=== PATIENT | male | born 1985 | race American Indian/Alaskan Native ===

== ENCOUNTER 2017-01-16 02:22 | Inpatient (IN) | payer SELFPAY ==
[2017-01-16 02:46] LABS: Basophils % (Auto) 0.9 % (0.0-1.8); Eosinophils % (Auto) 3.6 % (0.0-4.3); Hemoglobin 15.2 gm/dl (11.8-15.2); Mean Corpuscular HGB Conc 35 % (32-34); Mean Corpuscular Hemoglobin 32 pg (28-32); Mean Corpuscular Volume 93 fl (84-94); Platelet Count 235 K/mm3 (140-440); Red Blood Count 4.75 M/mm3 (3.65-5.03); Red Cell Distribution Width 14.1 % (13.2-15.2); White Blood Count 13.9 K/mm3 (4.5-11.0)
[2017-01-16 03:05] LABS: Anion Gap 18 mmol/L; BUN/Creatinine Ratio 13; Blood Urea Nitrogen 12 mg/dL (9-20); Calcium 9.4 mg/dL (8.4-10.2); Carbon Dioxide 25 mmol/L (22-30); Chloride 97.6 mmol/L (98-107); Glucose 93 mg/dL (75-100); Sodium 137 mmol/L (137-145)
[2017-01-16] MEDS ORDERED: NACL 0.9% 1000 ML 1,000 ML IV ONE (06:42)
[2017-01-16] MEDS ORDERED: ATIVAN IV PRN (06:55)
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
[2017-01-16 07:48] LABS: Urine Drugs of Abuse Note Disclamer
[2017-01-16 08:05] LABS: Bilirubin,Urine NEG (Negative); Blood,Urine NEG (Negative); Ketones,Urine NEG (Negative); Leukocyte Esterase,Urine NEG (Negative); Mucus,Urine FEW /HPF; Nitrite,Urine NEG (Negative); Protein,Urine <15 mg/dL mg/dL (Negative); Urobilinogen,Urine < 2.0 mg/dL (<2.0)
[2017-01-16] MEDS ORDERED: TYLENOL PO PRN (09:47)
[2017-01-16] MEDS ORDERED: ZOFRAN IV PRN (09:47)
--- NOTE | 2017-01-16 09:57 | History and Physical Report ---
History of Present Illness Date of examination: 01/16/17 Date of admission: 01/16/2017 History of present illness: patient is a 31 years old male with no past medical history, who presenters to the Emergency Department for free physical checkup and hallucination. Patient initiated confused and hallucinated, therefore unable to provide detailed history. Patient was able to tell me that he came in for free physical checkup. Patient drove himself to the hospital. Patient denies auditory or visual hallucinations. Patient denies pain of any type, fever nausea or vomiting. Patient denies having any pain at present time. Past History Past Medical History: No medical history Past Surgical History: Other (unable to obtain due to patient's mental status) Social history: other (unable to obtain due to patient's mental status) Family history: other (unable to obtain due to patient's mental status) Medications and Allergies Allergies Allergy/AdvReac Type Severity Reaction Status Date / Time No Known Allergies Allergy Unverified 01/16/17 02:34 Active Meds: Active Medications Acetaminophen (Tylenol) 650 mg PO Q4H PRN PRN Reason: Pain MILD(1-3)/Fever >100.5/LIRA Bisacodyl (Dulcolax) 10 mg [place] QDAY PRN PRN Reason: Constipation unrelieved by MOM Enoxaparin Sodium (Lovenox) 40 mg SUB-Q QDAY [place] Sodium Chloride (Nacl 0.9% 1000 Ml) 1,000 mls @ 125 mls/hr IV DIRECT [place] Lorazepam (Ativan) 1 mg IV ONCE PRN PRN Reason: Agitation Last Admin: 01/16/17 09:15 Dose: 1 mg Ondansetron HCl (Zofran) 4 mg IV Q8H PRN PRN Reason: N/V unrelieved by Reglan Review of Systems ROS unobtainable: due to mental status (unable to obtain due to patient's mental status) Exam - Constitutional Vitals: Temp Pulse Resp BP Pulse Ox 98.4 F 92 H 18 151/80 97 01/16/17 02:29 01/16/17 02:29 01/16/17 07:22 01/16/17 02:29 01/16/17 02:29 General appearance: Present: no acute distress - EENT Eyes: Present: PERRL ENT: hearing intact - Neck Neck: Present: supple - Respiratory Respiratory effort: normal Respiratory: bilateral: CTA - Cardiovascular Rhythm: regular Heart Sounds: Present: S1 & S2 - Abdominal General gastrointestinal: Present: soft, non-tender Male genitourinary: Present: deferred - Rectal Rectal Exam: deferred - Integumentary Integumentary: Present: clear, warm, dry - Musculoskeletal Musculoskeletal: strength equal bilaterally - Psychiatric Psychiatric: appropriate mood/affect - Neurologic Neurologic: moves all extremities - Allied Health Allied health notes reviewed: nursing Results - Labs CBC & Chem 7: 01/16/17 02:39 01/16/17 02:39 Labs: Laboratory Last Values WBC 13.9 K/mm3 (4.5-11.0) H 01/16/17 02:39 RBC 4.75 M/mm3 (3.65-5.03) 01/16/17 02:39 Hgb 15.2 gm/dl (11.8-15.2) 01/16/17 02:39 Hct 44.0 % (35.5-45.6) 01/16/17 02:39 MCV 93 fl (84-94) 01/16/17 02:39 MCH 32 pg (28-32) 01/16/17 02:39 MCHC 35 % (32-34) H 01/16/17 02:39 RDW 14.1 % (13.2-15.2) 01/16/17 02:39 Plt Count 235 K/mm3 (140-440) 01/16/17 02:39 Lymph % (Auto) 30.2 % (13.4-35.0) 01/16/17 02:39 [place] % (Auto) 9.5 % (0.0-7.3) H 01/16/17 02:39 Eos % (Auto) 3.6 % (0.0-4.3) 01/16/17 02:39 Baso % (Auto) 0.9 % (0.0-1.8) 01/16/17 02:39 Lymph # 4.2 K/mm3 (1.2-5.4) 01/16/17 02:39 [place] # 1.3 K/mm3 (0.0-0.8) H 01/16/17 02:39 Eos # 0.5 K/mm3 (0.0-0.4) H 01/16/17 02:39 Baso # 0.1 K/mm3 (0.0-0.1) 01/16/17 02:39 Seg Neutrophils % 55.8 % (40.0-70.0) 01/16/17 02:39 Seg Neutrophils # 7.8 K/mm3 (1.8-7.7) H 01/16/17 02:39 Sodium 137 mmol/L (137-145) 01/16/17 02:39 Potassium 4.0 mmol/L (3.6-5.0) 01/16/17 02:39 Chloride 97.6 mmol/L (98-107) L 01/16/17 02:39 Carbon Dioxide 25 mmol/L (22-30) 01/16/17 02:39 Anion Gap 18 mmol/L 01/16/17 02:39 BUN 12 mg/dL (9-20) 01/16/17 02:39 Creatinine 0.9 mg/dL (0.8-1.5) 01/16/17 02:39 Estimated GFR > 60 ml/min 01/16/17 02:39 BUN/Creatinine Ratio 13 % 01/16/17 02:39 Glucose 93 mg/dL (75-100) 01/16/17 02:39 Calcium 9.4 mg/dL (8.4-10.2) 01/16/17 02:39 Total Creatine Kinase 1995 units/L (55-170) H 01/16/17 02:39 Urine Color Yellow (Yellow) 01/16/17 Unknown Urine Turbidity Clear (Clear) 01/16/17 Unknown Urine pH 5.0 (5.0-7.0) 01/16/17 Unknown Ur Specific [place] 1.024 (1.003-1.030) 01/16/17 Unknown Urine Protein <15 mg/dl mg/dL (Negative) 01/16/17 Unknown Urine Glucose (UA) Neg mg/dL (Negative) 01/16/17 Unknown Urine Ketones Neg mg/dL (Negative) 01/16/17 Unknown Urine Blood Neg (Negative) 01/16/17 Unknown Urine Nitrite Neg (Negative) 01/16/17 Unknown Urine Bilirubin Neg (Negative) 01/16/17 Unknown Urine Urobilinogen < 2.0 mg/dL (<2.0) 01/16/17 Unknown Ur Leukocyte Esterase Neg (Negative) 01/16/17 Unknown Urine WBC (Auto) 1.0 /HPF (0.0-6.0) 01/16/17 Unknown Urine RBC (Auto) 4.0 /HPF (0.0-6.0) 01/16/17 Unknown Urine Mucus Few /HPF 01/16/17 Unknown Salicylates < 0.3 mg/dL (2.8-20.0) L 01/16/17 02:39 Acetaminophen < 15.0 ug/mL (10.0-30.0) 01/16/17 02:39 Plasma/Serum Alcohol < 0.01 gm% (0-0.07) 01/16/17 02:39 - Imaging and Cardiology CT Scan - head: image reviewed ( no acute intracranial process) Assessment and Plan Assessment and plan: Patient is a 31 years old male with no past medical history, who presenters to the Emergency Department for free physical checkup and hallucination. Acute encephalopathy Patient hallucination, Patient don't have psychiatric HX before, might be a new- onest Closely monitor Rhabdomyolysis Admit to [facility] Started on IV fluid hydration Closely monitor total creatinine kinase Supportive care Leukocytosis Most likely reactive, no source of infection found Repeat CBC in the AM Closely monitor CBC Hallucination Questionable new onset psychotic disorder Mental health consulted DVT prophylaxis Lovenox Advance Directives: Yes VTE prophylaxis?: Chemical Contraindication Mechanical VTE Prophylaxis: Treatment Not Indicated Plan of care discussed with patient/family: Yes
[2017-01-16] MEDS ORDERED: DULCOLAX PR PRN (10:00)
[2017-01-16] MEDS ORDERED: NACL 0.9% 1000 ML 1,000 ML IV SCH (10:00)
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
[2017-01-16] MEDS: LOVENOX SUB-Q SCH (12:30)
--- NOTE | 2017-01-16 16:04 | Consultation ---
History of Present Illness - Reason for Consult Reason for consult: delusional Medications and Allergies Allergies Allergy/AdvReac Type Severity Reaction Status Date / Time No Known Allergies Allergy Unverified 01/16/17 02:34 Active Meds: Active Medications Acetaminophen (Tylenol) 650 mg PO Q4H PRN PRN Reason: Pain MILD(1-3)/Fever >100.5/LIRA Bisacodyl (Dulcolax) 10 mg [place] QDAY PRN PRN Reason: Constipation unrelieved by MOM Enoxaparin Sodium (Lovenox) 40 mg SUB-Q QDAY [place] Last Admin: 01/16/17 12:30 Dose: Not Given Sodium Chloride (Nacl 0.9% 1000 Ml) 1,000 mls @ 125 mls/hr IV DIRECT [place] Lorazepam (Ativan) 1 mg IV ONCE PRN PRN Reason: Agitation Last Admin: 01/16/17 09:15 Dose: 1 mg Ondansetron HCl (Zofran) 4 mg IV Q8H PRN PRN Reason: N/V unrelieved by Reglan Mental Status Exam - Vital signs Last Vital Signs Temp 98.9 F 01/16/17 15:56 Pulse 76 01/16/17 15:56 Resp 20 01/16/17 15:56 BP 135/68 01/16/17 15:56 Pulse Ox 97 01/16/17 15:56 Results Result Diagrams: 01/16/17 02:39 01/16/17 02:39 Abnormal lab results 01/16/17 01/16/17 01/16/17 Range/Units 02:39 02:39 02:39 WBC 13.9 H (4.5-11.0) K/mm3 MCHC 35 H (32-34) % [place] % (Auto) 9.5 H (0.0-7.3) % [place] # 1.3 H (0.0-0.8) K/mm3 Eos # 0.5 H (0.0-0.4) K/mm3 Seg Neutrophils # 7.8 H (1.8-7.7) K/mm3 Chloride 97.6 L (98-107) mmol/L Total Creatine Kinase 1995 H (55-170) units/L Salicylates (2.8-20.0) mg/dL 01/16/17 Range/Units 02:39 WBC (4.5-11.0) K/mm3 MCHC (32-34) % [place] % (Auto) (0.0-7.3) % [place] # (0.0-0.8) K/mm3 Eos # (0.0-0.4) K/mm3 Seg Neutrophils # (1.8-7.7) K/mm3 Chloride (98-107) mmol/L Total Creatine Kinase (55-170) units/L Salicylates < 0.3 L (2.8-20.0) mg/dL All other labs normal. Assessment and Plan Assessment and plan: CHIEF COMPLAINT IN PATIENTS WORDS: HISTORY OF PRESENT ILLNESS: This is a 31-year-old male with no formal report past psychiatric history per the patient who now presents to the ER reportedly to obtain free medical checkup. On examination by the ER physician, patient appeared to be disorganized and paranoid. Later on he was found to have elevated creatinine kinase and admitted to the [facility] floor for presumptive treatment of rhabdomyolysis with IV hydration. On my examination, patient was uncooperative , guarded and fairly hostile. His father was in the exam room with him and the patient demanded that I do not speak with the father and revoked any consent for me to speak with the father. Additionally, patient noted that this was his father only for the past few years; however, the patient's father noted that this is his biological son has been his father forever. Patient had been recently living with his mom in [place] and notes he was employed while there for the past several years. Patient recently moved to [place] in September 2016 and has been residing with his father. At the current time, it appears that the father and the patient are having an ongoing dispute about the afterlife. The patient notes being concerned about not being able to meet his father upon their mutual . Patient believes that the father's atheist and therefore will not meet him in heaven. Patient's current presentation appears to be fairly hyper church. His thought process appears circumstantial at best and often tangential. He denies auditory or visual hallucinations. He denies being able to speak directly with God; however, appears to be endorsing church experiences that are out of the norm of what is culturally expected from a person of the Islamic josé miguel. CURRENT MEDICATIONS: None ALLERGIES: NKDA PAST PSYCHIATRIC HISTORY: Inpatient: denies Outpatient: denies Prior Suicide Attempts: denies Prior Self-Injurious Behaviors: denies PAST PSYCHIATRIC MEDICATION TRIALS: denies MEDICAL HISTORY: Denies MENTAL STATUS EXAM: General Appearance: Dressed in hospital gown, no acute distress Sensorium/Consciousness: alert and responding to external stimuli Eye Contact:fair Attitude / Behavior: uncooperative, hostile Psychomotor & Musculoskeletal Activity: agitated Mood: great Affect: labile Speech / Language: hyperverbal Thought Processes: mostly circumstantial, often tangential, some neologisms noted Thought Content: hyperreligious Perception: no AVH Orientation: person, place, time, situation Judgment What would you do if you smelled smoke in a crowded movie theater?: impulsive Insight: poor Intelligence Vocabulary, general fund of knowledge, educational level: Average Capacity of ADLs: Independent STRENGTHS: PSYCHOSOCIAL AND ENVIRONMENTAL STRESSORS: ASSESSMENT: Bipolar disorder, most recent episode manic with psychotic features PLAN OF CARE: Load with Depakote Er 2000 mg po now one time Obtain LFTs, amylase/lipase at baseline Repeat LFTs, Amylase/Lipase after 5 days of treatment with depakote Start standing dose of depakote er 500 mg po q12h after the initial loading dose
[2017-01-16 17:18] LABS: Alanine Aminotransferase 19 units/L (7-56); Albumin 4.1 g/dL (3.9-5); Albumin/Globulin Ratio 1.3 %; Alkaline Phosphatase 123 units/L (35-129); Total Protein 7.3 g/dL (6.3-8.2)
[2017-01-16 17:28] LABS: Bilirubin,Direct < 0.2 mg/dL (0-0.2); Bilirubin,Indirect 0.1 mg/dL
[2017-01-16 17:50] LABS: Amylase 102 units/L (27-131); Lipase 16 units/L (13-60)
[2017-01-16] MEDS: HABITROL TD SCH (19:36)
[2017-01-17 06:39] LABS: Basophils % (Auto) 0.5 % (0.0-1.8); Eosinophils % (Auto) 5.1 % (0.0-4.3); Hematocrit 41.8 % (35.5-45.6); Hemoglobin 14.3 gm/dl (11.8-15.2); Mean Corpuscular HGB Conc 34 % (32-34); Mean Corpuscular Hemoglobin 32 pg (28-32); Mean Corpuscular Volume 93 fl (84-94); Platelet Count 211 K/mm3 (140-440); Red Cell Distribution Width 14.1 % (13.2-15.2); White Blood Count 8.3 K/mm3 (4.5-11.0)
[2017-01-17 06:58] LABS: Anion Gap 18 mmol/L; BUN/Creatinine Ratio 16; Blood Urea Nitrogen 11 mg/dL (9-20); Calcium 8.7 mg/dL (8.4-10.2); Carbon Dioxide 24 mmol/L (22-30); Chloride 101.5 mmol/L (98-107); Glucose 87 mg/dL (75-100); Potassium 4.7 mmol/L (3.6-5.0); Sodium 139 mmol/L (137-145)
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
[2017-01-17] MEDS: LOVENOX SUB-Q SCH (10:26)
[2017-01-17] MEDS: HABITROL TD SCH (10:27)
[2017-01-17] MEDS ORDERED: NACL 0.9% 1000 ML 1,000 ML IV ONE (11:16)
[2017-01-17] MEDS ORDERED: NORCO 5/325 PO PRN (11:18)
--- NOTE | 2017-01-17 14:16 | Progress Note ---
Assessment and Plan Assessment and plan: Bipolar disorder with psychosis Rhabdomyolysis Right groin pain -CT abdomen and pelvis pending - Pain control - IV fluids, CK is trending down - Mental health managing the bipolar disorder - patient is on 1013 DVT prophylaxis - Lovenox Disposition - Continue inpatient care History Interval history: Patient was seen and evaluated this morning, he is calm and cooperative. He is complaining of right groin pain radiating to the testis. Hospitalist Physical - Physical exam Narrative exam: Not in cardiopulmonary distress. The patient is obese. Vital signs as documented. Head exam is unremarkable. No scleral icterus . Neck is without jugular venous distension, thyromegaly, or carotid bruits. Lungs are clear to auscultation. Cardiac exam reveals regular rate and Rhythm. First and second heart sounds normal. No murmurs, rubs or gallops. Abdominal exam reveals normal bowel sounds, no masses, no organomegaly and no aortic enlargement. Extremities are nonedematous and both femoral and pedal pulses are normal. OCCUPATIONAL THERAPIST REHAB MANAGER: Alert and oriented 3. No focal weakness. - Constitutional Vitals: Temp Pulse Resp BP Pulse Ox 98.0 F 78 18 119/72 99 01/17/17 08:08 01/17/17 08:08 01/17/17 08:08 01/17/17 08:08 01/17/17 08:08 General appearance: Present: no acute distress Results - Labs CBC & Chem 7: 01/17/17 06:19 01/17/17 06:19 Labs: Laboratory Last Values WBC 8.3 K/mm3 (4.5-11.0) 01/17/17 06:19 RBC 4.50 M/mm3 (3.65-5.03) 01/17/17 06:19 Hgb 14.3 gm/dl (11.8-15.2) 01/17/17 06:19 Hct 41.8 % (35.5-45.6) 01/17/17 06:19 MCV 93 fl (84-94) 01/17/17 06:19 MCH 32 pg (28-32) 01/17/17 06:19 MCHC 34 % (32-34) 01/17/17 06:19 RDW 14.1 % (13.2-15.2) 01/17/17 06:19 Plt Count 211 K/mm3 (140-440) 01/17/17 06:19 Lymph % (Auto) 31.2 % (13.4-35.0) 01/17/17 06:19 [place] % (Auto) 10.4 % (0.0-7.3) H 01/17/17 06:19 Eos % (Auto) 5.1 % (0.0-4.3) H 01/17/17 06:19 Baso % (Auto) 0.5 % (0.0-1.8) 01/17/17 06:19 Lymph # 2.6 K/mm3 (1.2-5.4) 01/17/17 06:19 [place] # 0.9 K/mm3 (0.0-0.8) H 01/17/17 06:19 Eos # 0.4 K/mm3 (0.0-0.4) 01/17/17 06:19 Baso # 0.0 K/mm3 (0.0-0.1) 01/17/17 06:19 Seg Neutrophils % 52.8 % (40.0-70.0) 01/17/17 06:19 Seg Neutrophils # 4.4 K/mm3 (1.8-7.7) 01/17/17 06:19 Sodium 139 mmol/L (137-145) 01/17/17 06:19 Potassium 4.7 mmol/L (3.6-5.0) 01/17/17 06:19 Chloride 101.5 mmol/L (98-107) 01/17/17 06:19 Carbon Dioxide 24 mmol/L (22-30) 01/17/17 06:19 Anion Gap 18 mmol/L 01/17/17 06:19 BUN 11 mg/dL (9-20) 01/17/17 06:19 Creatinine 0.7 mg/dL (0.8-1.5) L 01/17/17 06:19 Estimated GFR > 60 ml/min 01/17/17 06:19 BUN/Creatinine Ratio 16 % 01/17/17 06:19 Glucose 87 mg/dL (75-100) 01/17/17 06:19 Calcium 8.7 mg/dL (8.4-10.2) 01/17/17 06:19 Total Bilirubin 0.30 mg/dL (0.1-1.2) 01/16/17 16:43 Direct Bilirubin < 0.2 mg/dL (0-0.2) 01/16/17 16:43 Indirect Bilirubin 0.1 mg/dL 01/16/17 16:43 AST 30 units/L (5-40) 01/16/17 16:43 ALT 19 units/L (7-56) 01/16/17 16:43 Alkaline Phosphatase 123 units/L (35-129) 01/16/17 16:43 Total Creatine Kinase 1631 units/L (55-170) H 01/17/17 06:19 Total Protein 7.3 g/dL (6.3-8.2) 01/16/17 16:43 Albumin 4.1 g/dL (3.9-5) 01/16/17 16:43 Albumin/Globulin Ratio 1.3 % 01/16/17 16:43 Amylase 102 units/L (27-131) 01/16/17 16:43 Lipase 16 units/L (13-60) 01/16/17 16:43 Urine Color Yellow (Yellow) 01/16/17 Unknown Urine Turbidity Clear (Clear) 01/16/17 Unknown Urine pH 5.0 (5.0-7.0) 01/16/17 Unknown Ur Specific [place] 1.024 (1.003-1.030) 01/16/17 Unknown Urine Protein <15 mg/dl mg/dL (Negative) 01/16/17 Unknown Urine Glucose (UA) Neg mg/dL (Negative) 01/16/17 Unknown Urine Ketones Neg mg/dL (Negative) 01/16/17 Unknown Urine Blood Neg (Negative) 01/16/17 Unknown Urine Nitrite Neg (Negative) 01/16/17 Unknown Urine Bilirubin Neg (Negative) 01/16/17 Unknown Urine Urobilinogen < 2.0 mg/dL (<2.0) 01/16/17 Unknown Ur Leukocyte Esterase Neg (Negative) 01/16/17 Unknown Urine WBC (Auto) 1.0 /HPF (0.0-6.0) 01/16/17 Unknown Urine RBC (Auto) 4.0 /HPF (0.0-6.0) 01/16/17 Unknown Urine Mucus Few /HPF 01/16/17 Unknown Salicylates < 0.3 mg/dL (2.8-20.0) L 01/16/17 02:39 Urine Opiates Screen Presumptive negative 01/16/17 Unknown Urine Methadone Screen Presumptive negative 01/16/17 Unknown Acetaminophen < 15.0 ug/mL (10.0-30.0) 01/16/17 02:39 Ur Barbiturates Screen Presumptive negative 01/16/17 Unknown Ur Phencyclidine Scrn Presumptive negative 01/16/17 Unknown Ur Amphetamines Screen Presumptive negative 01/16/17 Unknown U Benzodiazepines Scrn Presumptive negative 01/16/17 Unknown Urine Cocaine Screen Presumptive negative 01/16/17 Unknown U Marijuana (THC) Screen Presumptive negative 01/16/17 Unknown Drugs of Abuse Note Disclamer 01/16/17 Unknown Plasma/Serum Alcohol < 0.01 gm% (0-0.07) 01/16/17 02:39
--- NOTE | 2017-01-17 14:39 | Cat Scan Report ---
CT ABDOMEN PELVIS WITHOUT CONTRAST: HISTORY: Right groin pain, radiating to the testicle. COMPARISON: none. TECHNIQUE: Helical CT in 1.25mm intervals without IV contrast. Sagittal and coronal reconstructions. FINDINGS: Lung bases: normal. Liver: normal. Biliary system: normal. Pancreas: normal. Spleen: normal. Kidneys/ureters/bladder: normal. Adrenal glands: normal. Aorta: normal. Intestines: normal. Appendix: Not identified, correlate with history. Pelvic viscera: normal. Musculoskeletal: normal. IMPRESSION: Unremarkable CT scan of the abdomen and pelvis without contrast.
[2017-01-17] MEDS: NACL 0.9% 1000 ML 2,000 ML IV SCH (17:15)
[2017-01-18] MEDS: NACL 0.9% 1000 ML 2,000 ML IV SCH (01:23)
--- NOTE | 2017-01-18 13:00 | Progress Note ---
Subjective - Reason for Consult Consult date: 01/18/17 Reason for consult: Psychiatry Follow-up - Chief Complaint Chief complaint: "Thank you" This is a 31-year-old male with no formal report past psychiatric history per the patient who now presents to the ER reportedly to obtain free medical checkup. Today patient is calm and cooperative during the assessment. He stated that he missed some "casting call" in the area. He stated that he strive to be an actor in the future. Per collateral information from his father Mr. Jeffrey Hernandez, he stated that his son does want to be actor. He stated prior to his son admission, he was hyper verbal, irritable, and not sleeping. Mr. Hernandez feel that his son would benefit from outpatient psy services. He stated that his son can return home once discharged. The patient denies SI/HI's and AVH's. He denies any side effects of his medication. Mental Status Exam - Vital signs Last Vital Signs Temp 98.1 F 01/18/17 08:49 Pulse 100 H 01/17/17 22:01 Resp 18 01/18/17 08:49 BP 146/88 01/18/17 08:49 Pulse Ox 97 01/17/17 22:01 - Exam Narrative exam: MSE: Appearance: calm, cooperative Behavior: regular eye contact Speech: regular rate and tone Mood: "better" Affect: congruent to mood Thought Process: circumstantial Thought Content: denies SI/HI's and AVH's Motor Activity: lying in bed Cognition: A/O x3 Insight: fair Judgment: fair Assessment and Plan Impression: Bipolar DO. Today patient is calm and cooperative during the assessment. Recommendation/Plan: Evaluate 1013 in 24 hours to determine proper dispo. Continue Depakote 500 mg PO BID for mood. Patient can follow-up at [facility] for outpatient psy services. Discussed with patient to follow up at [facility] on 22 Jan 2017 to check his VA levels. Discussed possible side effects of VA with patient.
[2017-01-18] MEDS: LOVENOX SUB-Q SCH (13:03)
[2017-01-18] MEDS: HABITROL TD SCH (13:04)
--- NOTE | 2017-01-18 13:42 | Progress Note ---
Assessment and Plan Assessment and plan: Bipolar disorder with psychosis Rhabdomyolysis Right groin pain -CT abdomen and pelvis is normal, pain resolved - Pain control - CK is trending down, encourage PO intake - Mental health managing the bipolar disorder - patient is on 1013 DVT prophylaxis - Lovenox Disposition - Patient is stable from the medical stand point. History Interval history: Patient was seen and evaluated this morning, he is calm and cooperative. No new complaints. Hospitalist Physical - Physical exam Narrative exam: Not in cardiopulmonary distress. The patient is obese. Vital signs as documented. Head exam is unremarkable. No scleral icterus . Neck is without jugular venous distension, thyromegaly, or carotid bruits. Lungs are clear to auscultation. Cardiac exam reveals regular rate and Rhythm. First and second heart sounds normal. No murmurs, rubs or gallops. Abdominal exam reveals normal bowel sounds, no masses, no organomegaly and no aortic enlargement. Extremities are nonedematous and both femoral and pedal pulses are normal. [employer]: Alert and oriented 3. No focal weakness. - Constitutional Vitals: Temp Pulse Resp BP Pulse Ox 98.1 F 100 H 18 146/88 97 01/18/17 08:49 01/17/17 22:01 01/18/17 08:49 01/18/17 08:49 01/17/17 22:01 General appearance: Present: no acute distress Results - Labs CBC & Chem 7: 01/17/17 06:19 01/17/17 06:19 Labs: Laboratory Last Values WBC 8.3 K/mm3 (4.5-11.0) 01/17/17 06:19 RBC 4.50 M/mm3 (3.65-5.03) 01/17/17 06:19 Hgb 14.3 gm/dl (11.8-15.2) 01/17/17 06:19 Hct 41.8 % (35.5-45.6) 01/17/17 06:19 MCV 93 fl (84-94) 01/17/17 06:19 MCH 32 pg (28-32) 01/17/17 06:19 MCHC 34 % (32-34) 01/17/17 06:19 RDW 14.1 % (13.2-15.2) 01/17/17 06:19 Plt Count 211 K/mm3 (140-440) 01/17/17 06:19 Lymph % (Auto) 31.2 % (13.4-35.0) 01/17/17 06:19 [place] % (Auto) 10.4 % (0.0-7.3) H 01/17/17 06:19 Eos % (Auto) 5.1 % (0.0-4.3) H 01/17/17 06:19 Baso % (Auto) 0.5 % (0.0-1.8) 01/17/17 06:19 Lymph # 2.6 K/mm3 (1.2-5.4) 01/17/17 06:19 [place] # 0.9 K/mm3 (0.0-0.8) H 01/17/17 06:19 Eos # 0.4 K/mm3 (0.0-0.4) 01/17/17 06:19 Baso # 0.0 K/mm3 (0.0-0.1) 01/17/17 06:19 Seg Neutrophils % 52.8 % (40.0-70.0) 01/17/17 06:19 Seg Neutrophils # 4.4 K/mm3 (1.8-7.7) 01/17/17 06:19 Sodium 139 mmol/L (137-145) 01/17/17 06:19 Potassium 4.7 mmol/L (3.6-5.0) 01/17/17 06:19 Chloride 101.5 mmol/L (98-107) 01/17/17 06:19 Carbon Dioxide 24 mmol/L (22-30) 01/17/17 06:19 Anion Gap 18 mmol/L 01/17/17 06:19 BUN 11 mg/dL (9-20) 01/17/17 06:19 Creatinine 0.7 mg/dL (0.8-1.5) L 01/17/17 06:19 Estimated GFR > 60 ml/min 01/17/17 06:19 BUN/Creatinine Ratio 16 % 01/17/17 06:19 Glucose 87 mg/dL (75-100) 01/17/17 06:19 Calcium 8.7 mg/dL (8.4-10.2) 01/17/17 06:19 Total Bilirubin 0.30 mg/dL (0.1-1.2) 01/16/17 16:43 Direct Bilirubin < 0.2 mg/dL (0-0.2) 01/16/17 16:43 Indirect Bilirubin 0.1 mg/dL 01/16/17 16:43 AST 30 units/L (5-40) 01/16/17 16:43 ALT 19 units/L (7-56) 01/16/17 16:43 Alkaline Phosphatase 123 units/L (35-129) 01/16/17 16:43 Total Creatine Kinase 1198 units/L (55-170) H 01/18/17 08:25 Total Protein 7.3 g/dL (6.3-8.2) 01/16/17 16:43 Albumin 4.1 g/dL (3.9-5) 01/16/17 16:43 Albumin/Globulin Ratio 1.3 % 01/16/17 16:43 Amylase 102 units/L (27-131) 01/16/17 16:43 Lipase 16 units/L (13-60) 01/16/17 16:43 Urine Color Yellow (Yellow) 01/16/17 Unknown Urine Turbidity Clear (Clear) 01/16/17 Unknown Urine pH 5.0 (5.0-7.0) 01/16/17 Unknown Ur Specific [place] 1.024 (1.003-1.030) 01/16/17 Unknown Urine Protein <15 mg/dl mg/dL (Negative) 01/16/17 Unknown Urine Glucose (UA) Neg mg/dL (Negative) 01/16/17 Unknown Urine Ketones Neg mg/dL (Negative) 01/16/17 Unknown Urine Blood Neg (Negative) 01/16/17 Unknown Urine Nitrite Neg (Negative) 01/16/17 Unknown Urine Bilirubin Neg (Negative) 01/16/17 Unknown Urine Urobilinogen < 2.0 mg/dL (<2.0) 01/16/17 Unknown Ur Leukocyte Esterase Neg (Negative) 01/16/17 Unknown Urine WBC (Auto) 1.0 /HPF (0.0-6.0) 01/16/17 Unknown Urine RBC (Auto) 4.0 /HPF (0.0-6.0) 01/16/17 Unknown Urine Mucus Few /HPF 01/16/17 Unknown Salicylates < 0.3 mg/dL (2.8-20.0) L 01/16/17 02:39 Urine Opiates Screen Presumptive negative 01/16/17 Unknown Urine Methadone Screen Presumptive negative 01/16/17 Unknown Acetaminophen < 15.0 ug/mL (10.0-30.0) 01/16/17 02:39 Ur Barbiturates Screen Presumptive negative 01/16/17 Unknown Ur Phencyclidine Scrn Presumptive negative 01/16/17 Unknown Ur Amphetamines Screen Presumptive negative 01/16/17 Unknown U Benzodiazepines Scrn Presumptive negative 01/16/17 Unknown Urine Cocaine Screen Presumptive negative 01/16/17 Unknown U Marijuana (THC) Screen Presumptive negative 01/16/17 Unknown Drugs of Abuse Note Disclamer 01/16/17 Unknown Plasma/Serum Alcohol < 0.01 gm% (0-0.07) 01/16/17 02:39 - Imaging and Cardiology CT scan - abdomen: report reviewed (Normal)
[2017-01-19 08:34] VITALS: BP 133/87
[2017-01-19] MEDS: HABITROL TD SCH (10:39)
[2017-01-19] MEDS: LOVENOX SUB-Q SCH (10:40)
--- NOTE | 2017-01-19 11:07 | Progress Note ---
Assessment and Plan Assessment and plan: Bipolar disorder with psychosis Rhabdomyolysis - Pain control - CK is trending down, encourage PO intake - Mental health managing the bipolar disorder and psychosis - patient is on 1013 DVT prophylaxis - Lovenox Disposition - Patient is stable from the medical stand point. History Interval history: Patient was seen and evaluated this morning, he is calm and cooperative. No new complaints. Hospitalist Physical - Physical exam Narrative exam: Not in cardiopulmonary distress. The patient is obese. Vital signs as documented. Head exam is unremarkable. No scleral icterus . Neck is without jugular venous distension, thyromegaly, or carotid bruits. Lungs are clear to auscultation. Cardiac exam reveals regular rate and Rhythm. First and second heart sounds normal. No murmurs, rubs or gallops. Abdominal exam reveals normal bowel sounds, no masses, no organomegaly and no aortic enlargement. Extremities are nonedematous and both femoral and pedal pulses are normal. [employer]: Alert and oriented 3. No focal weakness. - Constitutional Vitals: Temp Pulse Resp BP Pulse Ox 99.2 F 77 18 133/87 97 01/19/17 08:31 01/19/17 08:31 01/19/17 08:31 01/19/17 08:31 01/19/17 08:31 General appearance: Present: no acute distress Results - Labs CBC & Chem 7: 01/17/17 06:19 01/17/17 06:19 Labs: Laboratory Last Values WBC 8.3 K/mm3 (4.5-11.0) 01/17/17 06:19 RBC 4.50 M/mm3 (3.65-5.03) 01/17/17 06:19 Hgb 14.3 gm/dl (11.8-15.2) 01/17/17 06:19 Hct 41.8 % (35.5-45.6) 01/17/17 06:19 MCV 93 fl (84-94) 01/17/17 06:19 MCH 32 pg (28-32) 01/17/17 06:19 MCHC 34 % (32-34) 01/17/17 06:19 RDW 14.1 % (13.2-15.2) 01/17/17 06:19 Plt Count 211 K/mm3 (140-440) 01/17/17 06:19 Lymph % (Auto) 31.2 % (13.4-35.0) 01/17/17 06:19 [place] % (Auto) 10.4 % (0.0-7.3) H 01/17/17 06:19 Eos % (Auto) 5.1 % (0.0-4.3) H 01/17/17 06:19 Baso % (Auto) 0.5 % (0.0-1.8) 01/17/17 06:19 Lymph # 2.6 K/mm3 (1.2-5.4) 01/17/17 06:19 [place] # 0.9 K/mm3 (0.0-0.8) H 01/17/17 06:19 Eos # 0.4 K/mm3 (0.0-0.4) 01/17/17 06:19 Baso # 0.0 K/mm3 (0.0-0.1) 01/17/17 06:19 Seg Neutrophils % 52.8 % (40.0-70.0) 01/17/17 06:19 Seg Neutrophils # 4.4 K/mm3 (1.8-7.7) 01/17/17 06:19 Sodium 139 mmol/L (137-145) 01/17/17 06:19 Potassium 4.7 mmol/L (3.6-5.0) 01/17/17 06:19 Chloride 101.5 mmol/L (98-107) 01/17/17 06:19 Carbon Dioxide 24 mmol/L (22-30) 01/17/17 06:19 Anion Gap 18 mmol/L 01/17/17 06:19 BUN 11 mg/dL (9-20) 01/17/17 06:19 Creatinine 0.7 mg/dL (0.8-1.5) L 01/17/17 06:19 Estimated GFR > 60 ml/min 01/17/17 06:19 BUN/Creatinine Ratio 16 % 01/17/17 06:19 Glucose 87 mg/dL (75-100) 01/17/17 06:19 Calcium 8.7 mg/dL (8.4-10.2) 01/17/17 06:19 Total Bilirubin 0.30 mg/dL (0.1-1.2) 01/16/17 16:43 Direct Bilirubin < 0.2 mg/dL (0-0.2) 01/16/17 16:43 Indirect Bilirubin 0.1 mg/dL 01/16/17 16:43 AST 30 units/L (5-40) 01/16/17 16:43 ALT 19 units/L (7-56) 01/16/17 16:43 Alkaline Phosphatase 123 units/L (35-129) 01/16/17 16:43 Total Creatine Kinase 1198 units/L (55-170) H 01/18/17 08:25 Total Protein 7.3 g/dL (6.3-8.2) 01/16/17 16:43 Albumin 4.1 g/dL (3.9-5) 01/16/17 16:43 Albumin/Globulin Ratio 1.3 % 01/16/17 16:43 Amylase 102 units/L (27-131) 01/16/17 16:43 Lipase 16 units/L (13-60) 01/16/17 16:43 Urine Color Yellow (Yellow) 01/16/17 Unknown Urine Turbidity Clear (Clear) 01/16/17 Unknown Urine pH 5.0 (5.0-7.0) 01/16/17 Unknown Ur Specific [place] 1.024 (1.003-1.030) 01/16/17 Unknown Urine Protein <15 mg/dl mg/dL (Negative) 01/16/17 Unknown Urine Glucose (UA) Neg mg/dL (Negative) 01/16/17 Unknown Urine Ketones Neg mg/dL (Negative) 01/16/17 Unknown Urine Blood Neg (Negative) 01/16/17 Unknown Urine Nitrite Neg (Negative) 01/16/17 Unknown Urine Bilirubin Neg (Negative) 01/16/17 Unknown Urine Urobilinogen < 2.0 mg/dL (<2.0) 01/16/17 Unknown Ur Leukocyte Esterase Neg (Negative) 01/16/17 Unknown Urine WBC (Auto) 1.0 /HPF (0.0-6.0) 01/16/17 Unknown Urine RBC (Auto) 4.0 /HPF (0.0-6.0) 01/16/17 Unknown Urine Mucus Few /HPF 01/16/17 Unknown Salicylates < 0.3 mg/dL (2.8-20.0) L 01/16/17 02:39 Urine Opiates Screen Presumptive negative 01/16/17 Unknown Urine Methadone Screen Presumptive negative 01/16/17 Unknown Acetaminophen < 15.0 ug/mL (10.0-30.0) 01/16/17 02:39 Ur Barbiturates Screen Presumptive negative 01/16/17 Unknown Ur Phencyclidine Scrn Presumptive negative 01/16/17 Unknown Ur Amphetamines Screen Presumptive negative 01/16/17 Unknown U Benzodiazepines Scrn Presumptive negative 01/16/17 Unknown Urine Cocaine Screen Presumptive negative 01/16/17 Unknown U Marijuana (THC) Screen Presumptive negative 01/16/17 Unknown Drugs of Abuse Note Disclamer 01/16/17 Unknown Plasma/Serum Alcohol < 0.01 gm% (0-0.07) 01/16/17 02:39
--- NOTE | 2017-01-19 14:45 | Progress Note ---
Subjective - Reason for Consult Consult date: 01/19/17 Reason for consult: follow up - Chief Complaint Chief complaint: "Can you let me go?" This is a 31-year-old male with no formal report past psychiatric history per the patient who now presents to the ER reportedly to obtain free medical checkup. Today patient is calm and cooperative during the assessment. He stated that he missed some "casting call" in the area. He stated that he strives to be an actor in the future. The collateral previously obtained from his father indicated this to be accurate. He stated prior to his son's admission, he was hyper verbal, irritable, and not sleeping. Per previous collateral, his father stated that his son can return home once discharged. The patient denies SI/HI's and AVH's. He denies any side effects of his medication. Mental Status Exam - Vital signs Last Vital Signs Temp 99.2 F 01/19/17 08:31 Pulse 77 01/19/17 08:31 Resp 18 01/19/17 08:31 BP 133/87 01/19/17 08:31 Pulse Ox 97 01/19/17 08:31 - Exam Narrative exam: Appearance: calm, cooperative Behavior: regular eye contact Speech: regular rate and tone Mood: "better" Affect: congruent to mood Thought Process: circumstantial Thought Content: denies SI/HI's and AVH's Motor Activity: lying in bed Cognition: A/O x3 Insight: fair Judgment: fair Assessment and Plan Impression: Bipolar DO. Today patient is calm and cooperative during the assessment. Manic symptoms have decreased and patient is able to care for himself. No suicidal or homicidal ideation present. Recommendation/Plan: Rescind 1013 Recommend continuing Depakote 500 mg PO BID for mood. Patient can follow-up at [facility] for outpatient psy services. Discussed with patient to follow up at [facility] on 22 Jan 2017 to check his VA levels. The patient was educated on his medication and the need to continue it.
--- NOTE | 2017-01-19 16:35 | Discharge Summary ---
Providers - Providers Date of Admission: 01/16/17 09:47 Date of discharge: 01/19/17 Attending physician: JIN OWEN MD 01/16/17 09:52 Consult to Mental Health [CONS] Routine Reason For Exam: Hallucination Place consult to:: yes/ Notified:: Phone number called:: [phone] Was contact made?: Yes If yes, spoke with:: kathryn Time called:: 13:58 Primary care physician: [employer] Hospitalization Reason for admission: Bipolar disorder, rhabdomyolysis Condition: Fair Pertinent studies: CT abdomen and pelvis normal findings Hospital course: patient is a 31 years old male with no past medical history, who presenters to the Emergency Department for free physical checkup and hallucination. Patient initiated confused and hallucinated, therefore unable to provide detailed history. Patient was able to tell me that he came in for free physical checkup. Patient drove himself to the hospital. Patient denies auditory or visual hallucinations. Patient denies pain of any type, fever nausea or vomiting. Patient denies having any pain at present time. Patient was admitted to the floor bipolar disorder with psychosis, rhabdomyolysis. Patient was treated with IV fluids and creatinine kinase was trended down. Patient was able to take fluids by mouth. Psych was consulted and he was put on valproic acid and recommended to discharge him on valproic acid and have follow-up with outpatient mental health. Patient denied suicidal ideation, patient was hemodynamically stable at the time of discharge. Patient' s medications were reviewed and updated at the time of discharge. Patient was given resources to follow mental health as an outpatient. Patient was morbidly obese and was advised to lose weight, diet, exercise. Disposition: DC- TO HOME OR SELFCARE Time spent for discharge: 31 minutes - Discharge Diagnoses (1) Bipolar disorder (manic depression) Status: Acute (2) Rhabdomyolysis Status: Acute Core Measure Documentation - Palliative Care Palliative Care/ Comfort Measures: Not Applicable - Core Measures Any of the following diagnoses?: none Exam - Physical Exam Narrative exam: Not in cardiopulmonary distress. The patient is obese. Vital signs as documented. Head exam is unremarkable. No scleral icterus . Neck is without jugular venous distension, thyromegaly, or carotid bruits. Lungs are clear to auscultation. Cardiac exam reveals regular rate and Rhythm. First and second heart sounds normal. No murmurs, rubs or gallops. Abdominal exam reveals normal bowel sounds, no masses, no organomegaly and no aortic enlargement. Extremities are nonedematous and both femoral and pedal pulses are normal. [employer]: Alert and oriented 3. No focal weakness. - Constitutional Vitals: Temp Pulse Resp BP Pulse Ox 99.4 F 111 H 18 133/87 99 01/19/17 16:21 01/19/17 16:22 01/19/17 16:21 01/19/17 08:31 01/19/17 16:22 Plan Activity: no restrictions Weight Bearing Status: Full Weight Bearing Diet: low fat Additional Instructions: Please follow at [facility] in 2 weeks. Follow up with: PRIMARY CARE, [Primary Care Provider] - 3-5 Days Prescriptions: Divalproex ER [Depakote ER] 500 mg PO BID #60 tablet
== END 2017-01-19 16:30 | disposition home or self-care (01) | DRG 885 ==
LOC: ED 02:22 → EEVIPCON 02:22 → 3A 09:47
PROVIDERS: ADMIT Internal Medicine; ATTEND Internal Medicine
DX: F31.2 Bipolar disorder, current episode manic severe with psychotic features (principal); G93.40 Encephalopathy, unspecified; M62.82 Rhabdomyolysis; R44.3 Hallucinations, unspecified; F17.200 Nicotine dependence, unspecified, uncomplicated; R10.31 Right lower quadrant pain
CPT/HCPCS: 36415; 70450; 74176; 80048; 80074; 80307; 80320; 81001; 82150; 82550; 83690; 85025; 96374; 99406; G0480; J1650; J2060; J7030

== ENCOUNTER 2021-04-04 23:04 | Emergency (ER) | payer SELFPAY | END 2021-04-05 04:30 | disposition left against medical advice (07) | LOC: ED 23:04 | DX: E11.8 Type 2 diabetes mellitus with unspecified complications (principal); Z53.21 Procedure and treatment not carried out due to patient leaving prior to being seen by health care provider ==